=== PATIENT | female | born 1955 | race Caucasian/White ===

== ENCOUNTER 2022-10-24 22:41 | Emergency (ER) | payer OTHER, MEDICARE, SELFPAY ==
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
[2022-10-24 22:44] VITALS: BP 147/76; PULSE 88; RESP 18; TEMP 36.7; O2SAT 97
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
[2022-10-25] MEDS: ACETAMINOPHEN 500 MG TABLET 1000 MG PO (00:05)
== END 2022-10-25 01:30 | disposition home or self-care (01) ==
PROVIDERS: Emergency Provider Physician Assistant
DX: S20.212A Contusion of left front wall of thorax, initial encounter (principal); R10.12 Left upper quadrant pain; I10 Essential (primary) hypertension; E78.5 Hyperlipidemia, unspecified; V49.50XA Passenger injured in collision with unspecified motor vehicles in traffic accident, initial encounter
CPT/HCPCS: 71250; 74176; 99284; A9270